=== PATIENT | female | born 1950 | race Caucasian/White ===

== ENCOUNTER → 2016-07-23 | Outpatient (CLI) | payer MEDICARE, OTHER | END | disposition home or self-care (01) | LOC: RAD.S 13:30 | PROC: 0W9B3ZZ Drainage of Left Pleural Cavity, Percutaneous Approach (ICD-10-PCS; principal; 2016-07-23) | DX: J90 Pleural effusion, not elsewhere classified (principal); C34.32 Malignant neoplasm of lower lobe, left bronchus or lung; I10 Essential (primary) hypertension ==